=== PATIENT | male | born 1940 | race Caucasian/White ===

== ENCOUNTER 2017-07-07 09:44 | Emergency (ER) | payer BC, MEDICARE ==
[~2017-07-07] VITALS: Ht 172.7 cm; Wt 95.5 kg
[2017-07-07] MEDS ORDERED: REST15CA PO (10:01)
[2017-07-07] MEDS ORDERED: LEVO25TA5 PO (10:01)
[2017-07-07] MEDS ORDERED: ENAL10TA10 PO (10:01)
[2017-07-07] MEDS ORDERED: ASPI81TA85 PO (10:01)
[2017-07-07] MEDS ORDERED: TERA5CA PO (10:01)
[2017-07-07] MEDS ORDERED: LORA2CON5 PO (10:01)
[2017-07-07] MEDS ORDERED: MULT1TAB28 PO (10:01)
[2017-07-07 11:10] LABS: BASO % 0.7 % (0.0-1.0); EOS % 0.3 % (0.0-3.0); IMMATURE GRANULOCYTE % 0.2 % (0-0); LYMPH # 0.6 10^3/uL (1.5-4.5); LYMPH % 10.4 % (24.0-44.0); MEAN CORPUSCULAR HEMOGLOBIN 28.6 pg (27.0-33.0); MEAN CORPUSCULAR HGB CONC 32.7 g/dl (32.0-36.5); MEAN CORPUSCULAR VOLUME 87.4 fl (80.0-96.0); MONO # 0.5 10^3/uL (0.0-0.8); MONO % 8.2 % (0.0-5.0); NEUTROPHILS # 4.7 10^3/uL (1.8-7.7); NEUTROPHILS % 80.2 % (36.0-66.0); PLATELET COUNT, AUTOMATED 158 10^3/uL (150-450); RED CELL DISTRIBUTION WIDTH 14.4 % (11.5-14.5); WHITE BLOOD COUNT 5.9 10^3/uL (4.0-10.0)
[2017-07-07 11:26] LABS: ANION GAP 6 MEQ/L (8-16); BLOOD UREA NITROGEN 18 MG/DL (7-18); CALCIUM LEVEL 8.6 MG/DL (8.8-10.2); CARBON DIOXIDE LEVEL 34 MEQ/L (21-32); CHLORIDE LEVEL 107 MEQ/L (98-107); CREATININE FOR GFR 0.76 MG/DL (0.70-1.30); GLOMERULAR FILTRATION RATE > 60.0 (>42); GLUCOSE, FASTING 99 MG/DL (83-110); POTASSIUM SERUM 3.1 MEQ/L (3.5-5.1); SODIUM LEVEL 147 MEQ/L (136-145)
[2017-07-07 11:34] LABS: ERYTHROCYTE SEDIMENTATION RATE 115 mm/hr (0-20)
[2017-07-07] MEDS ORDERED: POTASSIUM CHLORIDE 10 MEQ SR TABLET PO ONE (13:30)
[2017-07-07] MEDS ORDERED: DOXY100C37 PO (13:35)
[2017-07-07] MEDS ORDERED: K-TA10TA2 PO (13:37)
[2017-07-07] MEDS ORDERED: NEOSPORIN OINT 0.9 GM PKT (FLOOR STOCK) As Ordered ONE (13:42)
[2017-07-07 13:56] VITALS: BP 162/84
--- NOTE | 2017-07-07 14:32 | REP ---
Right TIB-fib series: Four views. History: Right leg cellulitis. Right trejo wound, question osteomyelitis. Findings: Four views of the right TIB-fib show vascular calcification. 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 There is no plain radiographic evidence of osteomyelitis. No soft tissue gas is seen. Impression: No acute bony abnormality. Signed by Yaya Valle MD 07/07/2017 01:42 P
--- NOTE | 2017-07-07 14:32 | REP ---
Duplex extremity venous ultrasound: Right lower extremity. History: Right leg cellulitis. Question DVT. Findings: The deep veins are anechoic and fully compressible from the groin to the popliteal fossa in the right lower extremity. Color flow imaging is homogeneous. Spectral Doppler interrogation demonstrates intact respiratory variation in flow and normal manual augmentation of flow. There is no evidence of deep vein thrombosis. Impression: Negative right lower extremity duplex venous ultrasound. No evidence of deep vein thrombosis. Signed by Yaya Valle MD 07/07/2017 11:31 A
--- NOTE | 2017-07-07 14:32 | REP ---
Pelvis right hip: Three views. History: Right hip pain. Multiple falls. Findings: AP view of the pelvis demonstrates an intact bony pelvic ring. No hip, pelvic or sacral fracture is seen. There are arthritic changes in the hips bilaterally. Femoral heads are smooth and rounded. Periarticular soft tissues are unremarkable. Impression: Some degenerative changes. No fracture seen. Signed by Yaya Valle MD 07/07/2017 01:41 P
[2017-07-08] MEDS ORDERED: LASI20TA PO (06:11)
--- NOTE | 2017-07-08 08:59 | ED PDOC ---
Post-Departure Follow-Up I CALLED MRS. DAY AND ADVISED HER I HAD OMITTED THE PRESCRIPTION WE HAD DISCUSSED FOR FUROSEMIDE YESTERDAY. SHE REPORTED SHE ALREADY HAS HER OWN RX AT HOME AND HAD GIVEN HER 40MG YESTERDAY WHICH IMPROVED HIS LEG SWELLING. I TOLD HER I HAVE PLACED A RX TO BE PICKED UP AT THE PHARMACY AND HE IS TO TAKE 20MG DAILY FOR THE NEXT 4 DAYS. SHE EXPRESSED AWARENESS. Trinity Chun PA-C Jul 08, 2017 08:59
[2017-07-14] MEDS ORDERED: POTA20TA PO (13:04)
[2017-07-14] MEDS ORDERED: TORS20TA2 PO (13:04)
[2017-07-14] MEDS ORDERED: LORA0.5T11 PO (13:05)
[2017-07-14] MEDS ORDERED: DOXY100T PO (13:05)
== END 2017-07-07 13:57 | disposition home or self-care (01) ==
LOC: M ED 09:44
DX: L03.115 Cellulitis of right lower limb (principal); L97.909 Non-pressure chronic ulcer of unspecified part of unspecified lower leg with unspecified severity; R60.9 Edema, unspecified; E87.6 Hypokalemia; R03.0 Elevated blood-pressure reading, without diagnosis of hypertension; Z87.442 Personal history of urinary calculi; G30.9 Alzheimer's disease, unspecified; N40.0 Benign prostatic hyperplasia without lower urinary tract symptoms; Z87.891 Personal history of nicotine dependence; Z79.82 Long term (current) use of aspirin; Z79.899 Other long term (current) drug therapy

== ENCOUNTER 2017-07-14 09:15 | Inpatient (IN) | payer MEDICARE ==
[2017-07-14] MEDS: ASPIRIN 81 MG ENTERIC TAB PO (09:00)
[2017-07-14] MEDS: ENOXAPARIN 40 MG/0.4 ML SYRINGE (J1650) SC (09:00)
[2017-07-14 10:07] LABS: BASO % 0.5 % (0.0-1.0); EOS % 0.6 % (0.0-3.0); IMMATURE GRANULOCYTE % 0.3 % (0-0); LYMPH # 0.7 10^3/uL (1.5-4.5); LYMPH % 10.6 % (24.0-44.0); MEAN CORPUSCULAR HEMOGLOBIN 28.5 pg (27.0-33.0); MEAN CORPUSCULAR HGB CONC 32.4 g/dl (32.0-36.5); MONO # 0.5 10^3/uL (0.0-0.8); MONO % 8.7 % (0.0-5.0); NEUTROPHILS # 4.9 10^3/uL (1.8-7.7); NEUTROPHILS % 79.3 % (36.0-66.0); PLATELET COUNT, AUTOMATED 188 10^3/uL (150-450); RED CELL DISTRIBUTION WIDTH 14.7 % (11.5-14.5); WHITE BLOOD COUNT 6.2 10^3/uL (4.0-10.0)
[2017-07-14 10:33] LABS: ALBUMIN/GLOBULIN RATIO 1.25 (1.00-1.93); ALKALINE PHOSPHATASE 83 U/L (45-117); ALT/SGPT 30 U/L (12-78); ANION GAP 7 MEQ/L (8-16); AST/SGOT 21 U/L (7-37); BILIRUBIN,DIRECT 0.3 MG/DL (0.0-0.2); BILIRUBIN,TOTAL 1.4 MG/DL (0.2-1.0); BLOOD UREA NITROGEN 42 MG/DL (7-18); CALCIUM LEVEL 9.3 MG/DL (8.8-10.2); CARBON DIOXIDE LEVEL 37 MEQ/L (21-32); CHLORIDE LEVEL 99 MEQ/L (98-107); CREATININE FOR GFR 1.54 MG/DL (0.70-1.30); GLOMERULAR FILTRATION RATE 47.2 (>42); GLUCOSE, FASTING 97 MG/DL (83-110); SODIUM LEVEL 143 MEQ/L (136-145); TOTAL PROTEIN 7.2 GM/DL (6.4-8.2)
[2017-07-14 10:42] LABS: METHADONE URINE NEGATIVE (NEGATIVE)
[2017-07-14 10:52] LABS: POTASSIUM SERUM 2.6 MEQ/L (3.5-5.1)
[2017-07-14] MEDS: KCL 10MEQ IN 100ML SWI (KRUN) 10 MEQ in APPROPRIATE DILUENT 1 EA IV (11:09)
[2017-07-14] MEDS: POTASSIUM CHLORIDE 10 MEQ SR TABLET PO (11:37)
[2017-07-14] MEDS: HALOPERIDOL 5 MG/ML VIAL (J1630) IV (16:00)
[2017-07-14 16:59] LABS: ANION GAP 8 MEQ/L (8-16); BLOOD UREA NITROGEN 46 MG/DL (7-18); CALCIUM LEVEL 9.5 MG/DL (8.8-10.2); CARBON DIOXIDE LEVEL 34 MEQ/L (21-32); CHLORIDE LEVEL 103 MEQ/L (98-107); CREATININE FOR GFR 1.58 MG/DL (0.70-1.30); GLOMERULAR FILTRATION RATE 45.9 (>42); GLUCOSE, FASTING 123 MG/DL (83-110); SODIUM LEVEL 145 MEQ/L (136-145)
[2017-07-14] MEDS: LORazepam 2 MG/ML VIAL (J2060) IV (17:14)
[2017-07-14] MEDS: HALOPERIDOL 1 MG TAB PO (18:48)
[2017-07-14] MEDS: LORazepam 1 MG TAB PO (18:48)
[2017-07-14] MEDS: SODIUM CHLORIDE 0.9% 1000 ML IV (19:50)
[2017-07-14] MEDS: SENOKOT S TAB PO (19:50)
[2017-07-14] MEDS: ACETAMINOPHEN 500 MG TAB PO (19:50)
[2017-07-15] MEDS: LEVOTHYROXINE 25MCG TABLET (0.025MG) PO (05:50)
[2017-07-15 06:01] LABS: BASO % 0.6 % (0.0-1.0); EOS # 0.1 10^3/uL (0.0-0.50); EOS % 1.1 % (0.0-3.0); IMMATURE GRANULOCYTE % 0.5 % (0-0); LYMPH # 0.8 10^3/uL (1.5-4.5); LYMPH % 12.7 % (24.0-44.0); MEAN CORPUSCULAR HEMOGLOBIN 28.4 pg (27.0-33.0); MEAN CORPUSCULAR HGB CONC 32.3 g/dl (32.0-36.5); MONO # 0.8 10^3/uL (0.0-0.8); MONO % 12.4 % (0.0-5.0); NEUTROPHILS # 4.5 10^3/uL (1.8-7.7); NEUTROPHILS % 72.7 % (36.0-66.0); PLATELET COUNT, AUTOMATED 164 10^3/uL (150-450); RED CELL DISTRIBUTION WIDTH 14.3 % (11.5-14.5); WHITE BLOOD COUNT 6.2 10^3/uL (4.0-10.0)
[2017-07-15 06:25] LABS: ANION GAP 9 MEQ/L (8-16); BLOOD UREA NITROGEN 42 MG/DL (7-18); CARBON DIOXIDE LEVEL 30 MEQ/L (21-32); CHLORIDE LEVEL 105 MEQ/L (98-107); CREATININE FOR GFR 1.15 MG/DL (0.70-1.30); GLOMERULAR FILTRATION RATE > 60.0 (>42); GLUCOSE, FASTING 109 MG/DL (83-110); POTASSIUM SERUM 2.9 MEQ/L (3.5-5.1); SODIUM LEVEL 144 MEQ/L (136-145)
[2017-07-15 07:12] LABS: MAGNESIUM LEVEL 2.1 MG/DL (1.8-2.4)
[2017-07-15] MEDS: POTASSIUM CHLORIDE 10 MEQ SR TABLET PO ×2 (07:28→08:12)
[2017-07-15] MEDS: ASPIRIN 81 MG ENTERIC TAB PO (08:11)
[2017-07-15] MEDS: SENOKOT S TAB PO ×2 (08:12→20:05)
[2017-07-15] MEDS: ENOXAPARIN 40 MG/0.4 ML SYRINGE (J1650) SC (08:12)
[2017-07-15] MEDS: TERAZOSIN 5 MG CAP PO (10:18)
[2017-07-15] MEDS: LORazepam 1 MG TAB PO ×2 (10:18→20:05)
[2017-07-15] MEDS: HALOPERIDOL 1 MG TAB PO (16:06)
[2017-07-15 21:52] LABS: ANION GAP 4 MEQ/L (8-16); BLOOD UREA NITROGEN 40 MG/DL (7-18); CALCIUM LEVEL 9.5 MG/DL (8.8-10.2); CARBON DIOXIDE LEVEL 33 MEQ/L (21-32); CHLORIDE LEVEL 108 MEQ/L (98-107); CREATININE FOR GFR 1.07 MG/DL (0.70-1.30); GLOMERULAR FILTRATION RATE > 60.0 (>42); GLUCOSE, FASTING 101 MG/DL (83-110); POTASSIUM SERUM 4.1 MEQ/L (3.5-5.1); SODIUM LEVEL 145 MEQ/L (136-145)
[2017-07-16] MEDS: LEVOTHYROXINE 25MCG TABLET (0.025MG) PO (05:51)
[2017-07-16 06:59] LABS: BASO % 0.5 % (0.0-1.0); EOS # 0.1 10^3/uL (0.0-0.50); EOS % 1.1 % (0.0-3.0); IMMATURE GRANULOCYTE % 0.2 % (0-0); LYMPH # 0.8 10^3/uL (1.5-4.5); LYMPH % 13.4 % (24.0-44.0); MEAN CORPUSCULAR HEMOGLOBIN 28.3 pg (27.0-33.0); MEAN CORPUSCULAR HGB CONC 32.1 g/dl (32.0-36.5); MEAN CORPUSCULAR VOLUME 88.3 fl (80.0-96.0); MONO # 0.7 10^3/uL (0.0-0.8); MONO % 12.2 % (0.0-5.0); NEUTROPHILS # 4.1 10^3/uL (1.8-7.7); NEUTROPHILS % 72.6 % (36.0-66.0); PLATELET COUNT, AUTOMATED 153 10^3/uL (150-450); RED CELL DISTRIBUTION WIDTH 14.3 % (11.5-14.5); WHITE BLOOD COUNT 5.7 10^3/uL (4.0-10.0)
[2017-07-16 07:14] LABS: ANION GAP 6 MEQ/L (8-16); BLOOD UREA NITROGEN 31 MG/DL (7-18); CALCIUM LEVEL 9.2 MG/DL (8.8-10.2); CARBON DIOXIDE LEVEL 30 MEQ/L (21-32); CHLORIDE LEVEL 110 MEQ/L (98-107); CREATININE FOR GFR 0.81 MG/DL (0.70-1.30); GLOMERULAR FILTRATION RATE > 60.0 (>42); GLUCOSE, FASTING 101 MG/DL (83-110); POTASSIUM SERUM 3.4 MEQ/L (3.5-5.1); SODIUM LEVEL 146 MEQ/L (136-145)
[2017-07-16] MEDS: LORazepam 1 MG TAB PO ×3 (07:50→21:03)
[2017-07-16] MEDS: ENOXAPARIN 40 MG/0.4 ML SYRINGE (J1650) SC (08:01)
[2017-07-16] MEDS: TERAZOSIN 5 MG CAP PO (08:01)
[2017-07-16] MEDS: ASPIRIN 81 MG ENTERIC TAB PO (08:01)
[2017-07-16] MEDS: SENOKOT S TAB PO ×2 (08:01→21:03)
[2017-07-16] MEDS: LORazepam 2 MG/ML VIAL (J2060) IV (09:58)
[2017-07-16 10:27] LABS: VITAMIN B12 LEVEL 321 PG/ML (247-911)
[2017-07-16] MEDS: HALOPERIDOL 1 MG TAB PO (15:34)
[2017-07-16] MEDS ORDERED: HALOPERIDOL 5 MG/ML VIAL (J1630) As Ordered (15:51)
[2017-07-16] MEDS: HALOPERIDOL 5 MG/ML VIAL (J1630) IM (15:56)
[2017-07-16] MEDS ORDERED: HALOPERIDOL 5 MG/ML VIAL (J1630) IM (16:00)
[2017-07-16] MEDS: QUEtiapine FUMARATE 25 MG TAB PO (21:03)
[2017-07-17] MEDS: LORazepam 1 MG TAB PO ×2 (03:57→11:13)
[2017-07-17] MEDS: LEVOTHYROXINE 25MCG TABLET (0.025MG) PO (05:53)
[2017-07-17] MEDS: ASPIRIN 81 MG ENTERIC TAB PO (09:37)
[2017-07-17] MEDS: ENOXAPARIN 40 MG/0.4 ML SYRINGE (J1650) SC (09:37)
[2017-07-17] MEDS: TERAZOSIN 5 MG CAP PO (09:37)
[2017-07-17] MEDS: QUEtiapine FUMARATE 25 MG TAB PO ×2 (09:37→20:39)
[2017-07-17] MEDS: SENOKOT S TAB PO ×2 (09:37→20:39)
[2017-07-18] MEDS: LORazepam 1 MG TAB PO ×2 (02:47→08:52)
[2017-07-18] MEDS: LEVOTHYROXINE 25MCG TABLET (0.025MG) PO (05:40)
[2017-07-18] MEDS: TERAZOSIN 5 MG CAP PO (08:52)
[2017-07-18] MEDS: QUEtiapine FUMARATE 25 MG TAB PO ×2 (08:52→21:15)
[2017-07-18] MEDS: SENOKOT S TAB PO ×2 (08:52→21:15)
[2017-07-18] MEDS: ENOXAPARIN 40 MG/0.4 ML SYRINGE (J1650) SC (08:52)
[2017-07-18] MEDS: ASPIRIN 81 MG ENTERIC TAB PO (08:52)
[2017-07-18] MEDS: QUEtiapine FUMARATE 12.5 MG HALF-TAB PO (21:15)
[2017-07-19] MEDS: LEVOTHYROXINE 25MCG TABLET (0.025MG) PO (05:26)
[2017-07-19] MEDS: SENOKOT S TAB PO ×2 (10:06→21:26)
[2017-07-19] MEDS: QUEtiapine FUMARATE 12.5 MG HALF-TAB PO ×2 (10:06→21:00)
[2017-07-19] MEDS: ASPIRIN 81 MG ENTERIC TAB PO (10:07)
[2017-07-19] MEDS: TERAZOSIN 5 MG CAP PO (10:07)
[2017-07-19] MEDS: QUEtiapine FUMARATE 25 MG TAB PO ×2 (10:07→21:26)
[2017-07-19] MEDS: ENOXAPARIN 40 MG/0.4 ML SYRINGE (J1650) SC (10:28)
[2017-07-19] MEDS: HALOPERIDOL 5 MG/ML VIAL (J1630) IM (15:18)
[2017-07-19] MEDS: LORazepam 1 MG TAB PO (18:09)
[2017-07-20] MEDS: LORazepam 1 MG TAB PO (04:27)
[2017-07-20] MEDS: ACETAMINOPHEN 500 MG TAB PO ×2 (04:27→22:02)
[2017-07-20] MEDS: LEVOTHYROXINE 25MCG TABLET (0.025MG) PO (04:27)
[2017-07-20] MEDS: QUEtiapine FUMARATE 25 MG TAB PO (10:58)
[2017-07-20] MEDS: TERAZOSIN 5 MG CAP PO (10:59)
[2017-07-20] MEDS: ASPIRIN 81 MG ENTERIC TAB PO (10:59)
[2017-07-20] MEDS: SENOKOT S TAB PO ×2 (10:59→22:03)
[2017-07-20] MEDS: QUEtiapine FUMARATE 12.5 MG HALF-TAB PO (11:00)
[2017-07-20] MEDS: ENOXAPARIN 40 MG/0.4 ML SYRINGE (J1650) SC (11:04)
[2017-07-20] MEDS: QUEtiapine FUMARATE 50 MG TAB PO (22:03)
[2017-07-21] MEDS: LEVOTHYROXINE 25MCG TABLET (0.025MG) PO (06:34)
[2017-07-21] MEDS: SENOKOT S TAB PO ×2 (09:00→20:17)
[2017-07-21] MEDS: ENOXAPARIN 40 MG/0.4 ML SYRINGE (J1650) SC (10:41)
[2017-07-21] MEDS: QUEtiapine FUMARATE 50 MG TAB PO ×2 (10:41→20:17)
[2017-07-21] MEDS: ASPIRIN 81 MG ENTERIC TAB PO (10:41)
[2017-07-21] MEDS: TERAZOSIN 5 MG CAP PO (10:41)
[2017-07-22] MEDS: LEVOTHYROXINE 25MCG TABLET (0.025MG) PO (05:33)
[2017-07-22] MEDS: ASPIRIN 81 MG ENTERIC TAB PO (07:54)
[2017-07-22] MEDS: QUEtiapine FUMARATE 50 MG TAB PO (07:54)
[2017-07-22] MEDS: SENOKOT S TAB PO ×2 (07:54→20:31)
[2017-07-22] MEDS: TERAZOSIN 5 MG CAP PO (07:54)
[2017-07-22] MEDS: ENOXAPARIN 40 MG/0.4 ML SYRINGE (J1650) SC (07:55)
[2017-07-22] MEDS: LORazepam 1 MG TAB PO ×2 (07:55→20:32)
[2017-07-22] MEDS: ACETAMINOPHEN 500 MG TAB PO (10:56)
[2017-07-22] MEDS: HALOPERIDOL 5 MG/ML VIAL (J1630) IM (16:04)
[2017-07-22] MEDS: diphenhydrAMINE INJ 50MG/ML VIAL (J1200) IM (16:21)
[2017-07-22] MEDS: QUEtiapine FUMARATE 25 MG TAB PO (20:31)
[2017-07-23] MEDS: LEVOTHYROXINE 25MCG TABLET (0.025MG) PO (06:10)
[2017-07-23] MEDS: ACETAMINOPHEN 500 MG TAB PO ×2 (06:52→18:59)
[2017-07-23] MEDS: QUEtiapine FUMARATE 25 MG TAB PO ×2 (09:59→20:16)
[2017-07-23] MEDS: ENOXAPARIN 40 MG/0.4 ML SYRINGE (J1650) SC (09:59)
[2017-07-23] MEDS: ASPIRIN 81 MG ENTERIC TAB PO (10:00)
[2017-07-23] MEDS: TERAZOSIN 5 MG CAP PO (10:00)
[2017-07-23] MEDS: SENOKOT S TAB PO ×2 (10:01→20:16)
[2017-07-23] MEDS: LORazepam 1 MG TAB PO (18:59)
[2017-07-24] MEDS: LEVOTHYROXINE 25MCG TABLET (0.025MG) PO (05:57)
[2017-07-24] MEDS: QUEtiapine FUMARATE 25 MG TAB PO ×2 (10:11→20:30)
[2017-07-24] MEDS: TERAZOSIN 5 MG CAP PO (10:12)
[2017-07-24] MEDS: SENOKOT S TAB PO ×2 (10:12→20:30)
[2017-07-24] MEDS: ASPIRIN 81 MG ENTERIC TAB PO (10:12)
[2017-07-24] MEDS: ENOXAPARIN 40 MG/0.4 ML SYRINGE (J1650) SC (10:13)
[2017-07-24] MEDS: ACETAMINOPHEN 500 MG TAB PO (15:22)
[2017-07-24] MEDS: LORazepam 1 MG TAB PO (18:00)
[2017-07-25] MEDS: LEVOTHYROXINE 25MCG TABLET (0.025MG) PO (05:52)
[2017-07-25] MEDS: QUEtiapine FUMARATE 25 MG TAB PO ×2 (10:01→20:26)
[2017-07-25] MEDS: SENOKOT S TAB PO ×2 (10:01→20:26)
[2017-07-25] MEDS: ASPIRIN 81 MG ENTERIC TAB PO (10:01)
[2017-07-25] MEDS: ENOXAPARIN 40 MG/0.4 ML SYRINGE (J1650) SC (10:02)
[2017-07-25] MEDS: TERAZOSIN 5 MG CAP PO (10:02)
[2017-07-25] MEDS: ACETAMINOPHEN 500 MG TAB PO (14:44)
[2017-07-26] MEDS: LEVOTHYROXINE 25MCG TABLET (0.025MG) PO (05:43)
[2017-07-26] MEDS: ASPIRIN 81 MG ENTERIC TAB PO (08:43)
[2017-07-26] MEDS: ENOXAPARIN 40 MG/0.4 ML SYRINGE (J1650) SC (08:43)
[2017-07-26] MEDS: QUEtiapine FUMARATE 25 MG TAB PO ×2 (08:43→20:11)
[2017-07-26] MEDS: TERAZOSIN 5 MG CAP PO (08:43)
[2017-07-26] MEDS: SENOKOT S TAB PO ×2 (08:43→16:58)
[2017-07-26] MEDS: LORazepam 1 MG TAB PO (14:35)
[2017-07-27] MEDS: LEVOTHYROXINE 25MCG TABLET (0.025MG) PO (05:04)
[2017-07-27] MEDS: LORazepam 1 MG TAB PO ×2 (05:04→17:20)
[2017-07-27] MEDS: SENOKOT S TAB PO ×2 (07:54→20:16)
[2017-07-27] MEDS: QUEtiapine FUMARATE 25 MG TAB PO ×2 (08:46→20:16)
[2017-07-27] MEDS: ASPIRIN 81 MG ENTERIC TAB PO (08:47)
[2017-07-27] MEDS: TERAZOSIN 5 MG CAP PO (08:47)
[2017-07-27] MEDS: ENOXAPARIN 40 MG/0.4 ML SYRINGE (J1650) SC (08:48)
[2017-07-27] MEDS: ACETAMINOPHEN 500 MG TAB PO (20:14)
[2017-07-28] MEDS: HALOPERIDOL 5 MG/ML VIAL (J1630) IM (01:40)
[2017-07-28] MEDS: LEVOTHYROXINE 25MCG TABLET (0.025MG) PO (06:20)
[2017-07-28] MEDS: SENOKOT S TAB PO ×2 (09:56→20:27)
[2017-07-28] MEDS: QUEtiapine FUMARATE 25 MG TAB PO ×2 (09:56→20:27)
[2017-07-28] MEDS: TERAZOSIN 5 MG CAP PO (09:57)
[2017-07-28] MEDS: ASPIRIN 81 MG ENTERIC TAB PO (09:57)
[2017-07-28] MEDS: ENOXAPARIN 40 MG/0.4 ML SYRINGE (J1650) SC (09:57)
[2017-07-29] MEDS: LEVOTHYROXINE 25MCG TABLET (0.025MG) PO (05:45)
[2017-07-29] MEDS: ASPIRIN 81 MG ENTERIC TAB PO (10:39)
[2017-07-29] MEDS: QUEtiapine FUMARATE 25 MG TAB PO ×2 (10:39→20:55)
[2017-07-29] MEDS: SENOKOT S TAB PO ×2 (10:39→20:55)
[2017-07-29] MEDS: ENOXAPARIN 40 MG/0.4 ML SYRINGE (J1650) SC (10:40)
[2017-07-29] MEDS: TERAZOSIN 5 MG CAP PO (10:40)
[2017-07-29] MEDS: LORazepam 1 MG TAB PO (22:31)
[2017-07-30] MEDS: LEVOTHYROXINE 25MCG TABLET (0.025MG) PO (05:32)
[2017-07-30] MEDS: QUEtiapine FUMARATE 25 MG TAB PO ×2 (10:08→20:29)
[2017-07-30] MEDS: ASPIRIN 81 MG ENTERIC TAB PO (10:08)
[2017-07-30] MEDS: SENOKOT S TAB PO ×2 (10:08→20:29)
[2017-07-30] MEDS: TERAZOSIN 5 MG CAP PO (10:11)
[2017-07-30] MEDS: ENOXAPARIN 40 MG/0.4 ML SYRINGE (J1650) SC (10:12)
[2017-07-30] MEDS: LORazepam 1 MG TAB PO (19:27)
[2017-07-31] MEDS: LEVOTHYROXINE 25MCG TABLET (0.025MG) PO (05:44)
[2017-07-31] MEDS: TERAZOSIN 5 MG CAP PO (08:00)
[2017-07-31] MEDS: SENOKOT S TAB PO ×2 (08:00→20:21)
[2017-07-31] MEDS: ASPIRIN 81 MG ENTERIC TAB PO (08:00)
[2017-07-31] MEDS: QUEtiapine FUMARATE 25 MG TAB PO ×2 (08:00→20:22)
[2017-07-31] MEDS: ENOXAPARIN 40 MG/0.4 ML SYRINGE (J1650) SC (08:01)
[2017-08-01] MEDS: LEVOTHYROXINE 25MCG TABLET (0.025MG) PO (06:00)
[2017-08-01] MEDS: SENOKOT S TAB PO ×2 (09:02→20:02)
[2017-08-01] MEDS: TERAZOSIN 5 MG CAP PO (09:02)
[2017-08-01] MEDS: ASPIRIN 81 MG ENTERIC TAB PO (09:02)
[2017-08-01] MEDS: QUEtiapine FUMARATE 25 MG TAB PO ×2 (09:02→20:03)
[2017-08-01] MEDS: ENOXAPARIN 40 MG/0.4 ML SYRINGE (J1650) SC (09:03)
[2017-08-01] MEDS: ACETAMINOPHEN 500 MG TAB PO (20:03)
[2017-08-02] MEDS: ACETAMINOPHEN 500 MG TAB PO (04:41)
[2017-08-02] MEDS: LEVOTHYROXINE 25MCG TABLET (0.025MG) PO (05:46)
[2017-08-02] MEDS: ASPIRIN 81 MG ENTERIC TAB PO (09:27)
[2017-08-02] MEDS: QUEtiapine FUMARATE 25 MG TAB PO ×2 (09:27→21:04)
[2017-08-02] MEDS: TERAZOSIN 5 MG CAP PO (09:30)
[2017-08-02] MEDS: ENOXAPARIN 40 MG/0.4 ML SYRINGE (J1650) SC (09:30)
[2017-08-02] MEDS: SENOKOT S TAB PO ×2 (09:30→21:04)
[2017-08-03] MEDS: ACETAMINOPHEN 500 MG TAB PO (03:46)
[2017-08-03] MEDS: LEVOTHYROXINE 25MCG TABLET (0.025MG) PO (06:01)
[2017-08-03] MEDS: ASPIRIN 81 MG ENTERIC TAB PO (09:58)
[2017-08-03] MEDS: ENOXAPARIN 40 MG/0.4 ML SYRINGE (J1650) SC (09:58)
[2017-08-03] MEDS: QUEtiapine FUMARATE 25 MG TAB PO ×2 (09:58→20:20)
[2017-08-03] MEDS: TERAZOSIN 5 MG CAP PO (09:58)
[2017-08-03] MEDS: SENOKOT S TAB PO ×2 (09:58→20:21)
[2017-08-04] MEDS: LEVOTHYROXINE 25MCG TABLET (0.025MG) PO (05:59)
[2017-08-04] MEDS: ASPIRIN 81 MG ENTERIC TAB PO (09:27)
[2017-08-04] MEDS: QUEtiapine FUMARATE 25 MG TAB PO ×2 (09:27→21:45)
[2017-08-04] MEDS: TERAZOSIN 5 MG CAP PO (09:28)
[2017-08-04] MEDS: SENOKOT S TAB PO ×2 (09:28→21:44)
[2017-08-05] MEDS: LEVOTHYROXINE 25MCG TABLET (0.025MG) PO (06:36)
[2017-08-05] MEDS: TERAZOSIN 5 MG CAP PO (08:35)
[2017-08-05] MEDS: ASPIRIN 81 MG ENTERIC TAB PO (08:36)
[2017-08-05] MEDS: SENOKOT S TAB PO ×2 (08:36→21:07)
[2017-08-05] MEDS: QUEtiapine FUMARATE 25 MG TAB PO ×2 (08:37→21:08)
[2017-08-05] MEDS: LORazepam 1 MG TAB PO (21:10)
[2017-08-06] MEDS: LEVOTHYROXINE 25MCG TABLET (0.025MG) PO (06:04)
[2017-08-06] MEDS: ASPIRIN 81 MG ENTERIC TAB PO (09:44)
[2017-08-06] MEDS: SENOKOT S TAB PO ×2 (09:45→20:08)
[2017-08-06] MEDS: QUEtiapine FUMARATE 25 MG TAB PO ×2 (09:45→20:07)
[2017-08-06] MEDS: TERAZOSIN 5 MG CAP PO (10:35)
[2017-08-06] MEDS: LORazepam 1 MG TAB PO (20:07)
[2017-08-07] MEDS: LEVOTHYROXINE 25MCG TABLET (0.025MG) PO (05:14)
[2017-08-07] MEDS: QUEtiapine FUMARATE 25 MG TAB PO ×2 (11:29→20:25)
[2017-08-07] MEDS: ASPIRIN 81 MG ENTERIC TAB PO (11:29)
[2017-08-07] MEDS: SENOKOT S TAB PO ×2 (11:29→20:25)
[2017-08-07] MEDS: TERAZOSIN 5 MG CAP PO (11:30)
[2017-08-07] MEDS: LORazepam 1 MG TAB PO (20:25)
[2017-08-08] MEDS: LEVOTHYROXINE 25MCG TABLET (0.025MG) PO (05:17)
[2017-08-08] MEDS: ASPIRIN 81 MG ENTERIC TAB PO (10:02)
[2017-08-08] MEDS: TERAZOSIN 5 MG CAP PO (10:02)
[2017-08-08] MEDS: QUEtiapine FUMARATE 25 MG TAB PO ×2 (10:02→20:18)
[2017-08-08] MEDS: SENOKOT S TAB PO ×2 (10:02→20:18)
[2017-08-08] MEDS: LORazepam 1 MG TAB PO (20:18)
[2017-08-09] MEDS: LEVOTHYROXINE 25MCG TABLET (0.025MG) PO ×2 (05:48→05:52)
[2017-08-09] MEDS: QUEtiapine FUMARATE 25 MG TAB PO ×2 (10:08→21:42)
[2017-08-09] MEDS: ASPIRIN 81 MG ENTERIC TAB PO (10:09)
[2017-08-09] MEDS: SENOKOT S TAB PO ×2 (10:09→21:42)
[2017-08-09] MEDS: TERAZOSIN 5 MG CAP PO (10:17)
[2017-08-09] MEDS: ACETAMINOPHEN 500 MG TAB PO (10:20)
[2017-08-10] MEDS: LEVOTHYROXINE 25MCG TABLET (0.025MG) PO (05:37)
[2017-08-10] MEDS: QUEtiapine FUMARATE 25 MG TAB PO ×2 (09:20→21:41)
[2017-08-10] MEDS: TERAZOSIN 5 MG CAP PO (09:20)
[2017-08-10] MEDS: SENOKOT S TAB PO ×2 (09:20→21:41)
[2017-08-10] MEDS: ASPIRIN 81 MG ENTERIC TAB PO (09:20)
[2017-08-11] MEDS: LEVOTHYROXINE 25MCG TABLET (0.025MG) PO (08:31)
[2017-08-11] MEDS: QUEtiapine FUMARATE 25 MG TAB PO ×2 (08:31→21:52)
[2017-08-11] MEDS: ASPIRIN 81 MG ENTERIC TAB PO (08:34)
[2017-08-11] MEDS: SENOKOT S TAB PO ×2 (08:34→21:52)
[2017-08-11] MEDS: TERAZOSIN 5 MG CAP PO (08:34)
[2017-08-11] MEDS: ACETAMINOPHEN 500 MG TAB PO (11:56)
[2017-08-12] MEDS: LEVOTHYROXINE 25MCG TABLET (0.025MG) PO (06:01)
[2017-08-12] MEDS: QUEtiapine FUMARATE 25 MG TAB PO ×2 (10:09→21:16)
[2017-08-12] MEDS: SENOKOT S TAB PO ×2 (10:09→21:16)
[2017-08-12] MEDS: TERAZOSIN 5 MG CAP PO (10:09)
[2017-08-12] MEDS: ASPIRIN 81 MG ENTERIC TAB PO (10:09)
[2017-08-12] MEDS: LORazepam 1 MG TAB PO (21:16)
[2017-08-13] MEDS: LEVOTHYROXINE 25MCG TABLET (0.025MG) PO (06:32)
[2017-08-13] MEDS: ASPIRIN 81 MG ENTERIC TAB PO (10:41)
[2017-08-13] MEDS: QUEtiapine FUMARATE 25 MG TAB PO ×2 (10:41→20:30)
[2017-08-13] MEDS: SENOKOT S TAB PO ×2 (10:41→20:30)
[2017-08-13] MEDS: TERAZOSIN 5 MG CAP PO (10:42)
[2017-08-14] MEDS: LEVOTHYROXINE 25MCG TABLET (0.025MG) PO (06:35)
[2017-08-14] MEDS: ASPIRIN 81 MG ENTERIC TAB PO (10:36)
[2017-08-14] MEDS: QUEtiapine FUMARATE 25 MG TAB PO ×2 (10:36→20:24)
[2017-08-14] MEDS: SENOKOT S TAB PO ×2 (10:36→20:24)
[2017-08-14] MEDS: TERAZOSIN 5 MG CAP PO (10:36)
[2017-08-15] MEDS: LEVOTHYROXINE 25MCG TABLET (0.025MG) PO (06:28)
[2017-08-15] MEDS: ASPIRIN 81 MG ENTERIC TAB PO (10:23)
[2017-08-15] MEDS: TERAZOSIN 5 MG CAP PO (10:24)
[2017-08-15] MEDS: QUEtiapine FUMARATE 25 MG TAB PO ×2 (10:24→20:15)
[2017-08-15] MEDS: SENOKOT S TAB PO ×2 (10:24→20:15)
[2017-08-15] MEDS: LORazepam 1 MG TAB PO (20:15)
[2017-08-16] MEDS: LEVOTHYROXINE 25MCG TABLET (0.025MG) PO (06:12)
[2017-08-16] MEDS: TERAZOSIN 5 MG CAP PO (10:44)
[2017-08-16] MEDS: ASPIRIN 81 MG ENTERIC TAB PO (10:44)
[2017-08-16] MEDS: QUEtiapine FUMARATE 25 MG TAB PO ×2 (10:44→20:49)
[2017-08-16] MEDS: SENOKOT S TAB PO ×2 (10:44→20:49)
[2017-08-16] MEDS: amLODIPine 5 MG TAB PO ×2 (15:44→20:50)
[2017-08-17] MEDS: LEVOTHYROXINE 25MCG TABLET (0.025MG) PO (05:32)
[2017-08-17] MEDS: amLODIPine 5 MG TAB PO ×2 (10:15→21:45)
[2017-08-17] MEDS: TERAZOSIN 5 MG CAP PO (10:15)
[2017-08-17] MEDS: SENOKOT S TAB PO ×2 (10:15→21:45)
[2017-08-17] MEDS: ASPIRIN 81 MG ENTERIC TAB PO (10:16)
[2017-08-17] MEDS: QUEtiapine FUMARATE 25 MG TAB PO ×2 (10:17→21:45)
[2017-08-18] MEDS: LEVOTHYROXINE 25MCG TABLET (0.025MG) PO (07:55)
[2017-08-18] MEDS: QUEtiapine FUMARATE 25 MG TAB PO ×2 (10:23→21:40)
[2017-08-18] MEDS: ASPIRIN 81 MG ENTERIC TAB PO (10:23)
[2017-08-18] MEDS: TERAZOSIN 5 MG CAP PO (10:23)
[2017-08-18] MEDS: SENOKOT S TAB PO ×2 (10:24→21:40)
[2017-08-18] MEDS: amLODIPine 5 MG TAB PO ×2 (10:24→21:40)
[2017-08-19] MEDS: LEVOTHYROXINE 25MCG TABLET (0.025MG) PO (05:57)
[2017-08-19] MEDS: SENOKOT S TAB PO ×2 (10:11→21:38)
[2017-08-19] MEDS: QUEtiapine FUMARATE 25 MG TAB PO ×2 (10:11→21:38)
[2017-08-19] MEDS: ASPIRIN 81 MG ENTERIC TAB PO (10:11)
[2017-08-19] MEDS: TERAZOSIN 5 MG CAP PO (10:14)
[2017-08-19] MEDS: amLODIPine 5 MG TAB PO ×2 (10:15→21:46)
[2017-08-20] MEDS: LEVOTHYROXINE 25MCG TABLET (0.025MG) PO (06:38)
[2017-08-20] MEDS: QUEtiapine FUMARATE 25 MG TAB PO ×2 (12:49→20:51)
[2017-08-20] MEDS: amLODIPine 5 MG TAB PO ×2 (12:49→20:54)
[2017-08-20] MEDS: SENOKOT S TAB PO ×2 (12:49→20:51)
[2017-08-20] MEDS: ASPIRIN 81 MG ENTERIC TAB PO (12:49)
[2017-08-20] MEDS: TERAZOSIN 5 MG CAP PO (12:49)
[2017-08-21] MEDS: LEVOTHYROXINE 25MCG TABLET (0.025MG) PO (05:04)
[2017-08-21] MEDS: LORazepam 1 MG TAB PO (05:04)
[2017-08-21] MEDS: TERAZOSIN 5 MG CAP PO (09:00)
[2017-08-21] MEDS: ASPIRIN 81 MG ENTERIC TAB PO (09:00)
[2017-08-21] MEDS: SENOKOT S TAB PO ×2 (09:00→20:45)
[2017-08-21] MEDS: amLODIPine 5 MG TAB PO ×2 (09:00→20:50)
[2017-08-21] MEDS: QUEtiapine FUMARATE 25 MG TAB PO ×2 (09:00→20:45)
[2017-08-22] MEDS: LEVOTHYROXINE 25MCG TABLET (0.025MG) PO (06:04)
[2017-08-22] MEDS: QUEtiapine FUMARATE 25 MG TAB PO ×2 (10:32→20:58)
[2017-08-22] MEDS: amLODIPine 5 MG TAB PO ×2 (10:32→20:57)
[2017-08-22] MEDS: SENOKOT S TAB PO ×2 (10:33→20:57)
[2017-08-22] MEDS: TERAZOSIN 5 MG CAP PO (10:33)
[2017-08-22] MEDS: ASPIRIN 81 MG ENTERIC TAB PO (10:33)
[2017-08-22] MEDS ORDERED: LORazepam 2 MG/ML VIAL (J2060) IV (13:30)
[2017-08-22] MEDS ORDERED: LORazepam 0.5 MG TAB PO (16:30)
[2017-08-22] MEDS: CIPROFLOXACIN 0.3% OPHTH SOLN 2.5ML OU (20:58)
[2017-08-23] MEDS: CIPROFLOXACIN 0.3% OPHTH SOLN 2.5ML OU ×4 (00:48→18:00)
[2017-08-23] MEDS: LEVOTHYROXINE 25MCG TABLET (0.025MG) PO (05:40)
[2017-08-23] MEDS: ASPIRIN 81 MG ENTERIC TAB PO (11:31)
[2017-08-23] MEDS: amLODIPine 5 MG TAB PO ×2 (11:32→20:46)
[2017-08-23] MEDS: TERAZOSIN 5 MG CAP PO (11:32)
[2017-08-23] MEDS: QUEtiapine FUMARATE 25 MG TAB PO ×2 (11:33→20:46)
[2017-08-23] MEDS: SENOKOT S TAB PO ×2 (11:33→20:46)
[2017-08-24] MEDS: CIPROFLOXACIN 0.3% OPHTH SOLN 2.5ML OU ×4 (00:47→18:12)
[2017-08-24] MEDS: LEVOTHYROXINE 25MCG TABLET (0.025MG) PO (06:05)
[2017-08-24] MEDS: ASPIRIN 81 MG ENTERIC TAB PO (10:22)
[2017-08-24] MEDS: amLODIPine 5 MG TAB PO ×2 (10:22→21:49)
[2017-08-24] MEDS: TERAZOSIN 5 MG CAP PO (10:22)
[2017-08-24] MEDS: SENOKOT S TAB PO ×2 (10:23→21:48)
[2017-08-24] MEDS: QUEtiapine FUMARATE 25 MG TAB PO ×2 (10:23→21:48)
[2017-08-25] MEDS: CIPROFLOXACIN 0.3% OPHTH SOLN 2.5ML OU ×4 (00:29→18:23)
[2017-08-25] MEDS: LEVOTHYROXINE 25MCG TABLET (0.025MG) PO (06:03)
[2017-08-25] MEDS: SENOKOT S TAB PO ×2 (08:28→20:57)
[2017-08-25] MEDS: TERAZOSIN 5 MG CAP PO (08:31)
[2017-08-25] MEDS: ASPIRIN 81 MG ENTERIC TAB PO (08:32)
[2017-08-25] MEDS: QUEtiapine FUMARATE 25 MG TAB PO ×2 (08:32→20:57)
[2017-08-25] MEDS: amLODIPine 5 MG TAB PO ×2 (08:32→20:59)
[2017-08-26] MEDS: CIPROFLOXACIN 0.3% OPHTH SOLN 2.5ML OU ×5 (01:30→18:00)
[2017-08-26] MEDS: LEVOTHYROXINE 25MCG TABLET (0.025MG) PO (06:13)
[2017-08-26] MEDS: ASPIRIN 81 MG ENTERIC TAB PO (09:58)
[2017-08-26] MEDS: QUEtiapine FUMARATE 25 MG TAB PO ×2 (09:58→20:43)
[2017-08-26] MEDS: SENOKOT S TAB PO ×2 (09:58→20:44)
[2017-08-26] MEDS: TERAZOSIN 5 MG CAP PO (09:58)
[2017-08-26] MEDS: amLODIPine 5 MG TAB PO ×2 (09:59→20:44)
[2017-08-27] MEDS: CIPROFLOXACIN 0.3% OPHTH SOLN 2.5ML OU ×4 (00:32→17:20)
[2017-08-27] MEDS: LEVOTHYROXINE 25MCG TABLET (0.025MG) PO (05:43)
[2017-08-27] MEDS: SENOKOT S TAB PO ×2 (11:43→20:57)
[2017-08-27] MEDS: ASPIRIN 81 MG ENTERIC TAB PO (11:43)
[2017-08-27] MEDS: QUEtiapine FUMARATE 25 MG TAB PO ×2 (11:43→20:57)
[2017-08-27] MEDS: TERAZOSIN 5 MG CAP PO (11:43)
[2017-08-27] MEDS: amLODIPine 5 MG TAB PO ×2 (11:44→20:57)
[2017-08-28] MEDS: CIPROFLOXACIN 0.3% OPHTH SOLN 2.5ML OU ×5 (00:34→23:38)
[2017-08-28] MEDS: LEVOTHYROXINE 25MCG TABLET (0.025MG) PO (05:44)
[2017-08-28] MEDS: amLODIPine 5 MG TAB PO ×2 (11:47→20:30)
[2017-08-28] MEDS: TERAZOSIN 5 MG CAP PO (11:47)
[2017-08-28] MEDS: SENOKOT S TAB PO ×2 (11:48→20:25)
[2017-08-28] MEDS: ASPIRIN 81 MG ENTERIC TAB PO (11:48)
[2017-08-28] MEDS: QUEtiapine FUMARATE 25 MG TAB PO ×2 (11:48→20:25)
[2017-08-28] MEDS: TOBRAMYCIN 0.3% OPHTH SOLN 5 ML OU ×2 (17:00→20:25)
[2017-08-29] MEDS: TOBRAMYCIN 0.3% OPHTH SOLN 5 ML OU ×6 (04:07→21:00)
[2017-08-29] MEDS: LEVOTHYROXINE 25MCG TABLET (0.025MG) PO (05:59)
[2017-08-29] MEDS: CIPROFLOXACIN 0.3% OPHTH SOLN 2.5ML OU ×3 (05:59→17:15)
[2017-08-29] MEDS: ASPIRIN 81 MG ENTERIC TAB PO (12:50)
[2017-08-29] MEDS: QUEtiapine FUMARATE 25 MG TAB PO ×2 (12:50→21:21)
[2017-08-29] MEDS: TERAZOSIN 5 MG CAP PO (12:50)
[2017-08-29] MEDS: SENOKOT S TAB PO ×2 (12:50→21:21)
[2017-08-29] MEDS: amLODIPine 5 MG TAB PO ×2 (12:50→21:21)
[2017-08-30] MEDS: TOBRAMYCIN 0.3% OPHTH SOLN 5 ML OU ×6 (00:27→20:51)
[2017-08-30] MEDS: CIPROFLOXACIN 0.3% OPHTH SOLN 2.5ML OU ×2 (05:56)
[2017-08-30] MEDS: LEVOTHYROXINE 25MCG TABLET (0.025MG) PO (05:57)
[2017-08-30] MEDS: ASPIRIN 81 MG ENTERIC TAB PO (10:17)
[2017-08-30] MEDS: TERAZOSIN 5 MG CAP PO (10:18)
[2017-08-30] MEDS: QUEtiapine FUMARATE 25 MG TAB PO ×2 (10:18→20:50)
[2017-08-30] MEDS: amLODIPine 5 MG TAB PO ×2 (10:18→20:51)
[2017-08-30] MEDS: SENOKOT S TAB PO ×2 (10:18→20:51)
[2017-08-31] MEDS: TOBRAMYCIN 0.3% OPHTH SOLN 5 ML OU ×6 (01:14→21:19)
[2017-08-31] MEDS: LEVOTHYROXINE 25MCG TABLET (0.025MG) PO (05:35)
[2017-08-31] MEDS: ASPIRIN 81 MG ENTERIC TAB PO (09:51)
[2017-08-31] MEDS: QUEtiapine FUMARATE 25 MG TAB PO ×2 (09:51→21:17)
[2017-08-31] MEDS: SENOKOT S TAB PO ×2 (09:52→21:17)
[2017-08-31] MEDS: amLODIPine 5 MG TAB PO ×2 (09:52→21:19)
[2017-08-31] MEDS: TERAZOSIN 5 MG CAP PO (09:52)
[2017-09-01] MEDS: TOBRAMYCIN 0.3% OPHTH SOLN 5 ML OU ×6 (01:07→21:27)
[2017-09-01] MEDS: LEVOTHYROXINE 25MCG TABLET (0.025MG) PO (05:58)
[2017-09-01] MEDS: amLODIPine 5 MG TAB PO ×2 (10:13→21:28)
[2017-09-01] MEDS: ASPIRIN 81 MG ENTERIC TAB PO (10:13)
[2017-09-01] MEDS: QUEtiapine FUMARATE 25 MG TAB PO ×2 (10:13→21:28)
[2017-09-01] MEDS: TERAZOSIN 5 MG CAP PO (10:13)
[2017-09-01] MEDS: SENOKOT S TAB PO ×2 (10:13→21:28)
[2017-09-02] MEDS: TOBRAMYCIN 0.3% OPHTH SOLN 5 ML OU ×6 (01:33→20:20)
[2017-09-02] MEDS: LEVOTHYROXINE 25MCG TABLET (0.025MG) PO (05:48)
[2017-09-02] MEDS: ASPIRIN 81 MG ENTERIC TAB PO (08:10)
[2017-09-02] MEDS: SENOKOT S TAB PO ×2 (08:10→20:18)
[2017-09-02] MEDS: amLODIPine 5 MG TAB PO ×2 (08:10→20:19)
[2017-09-02] MEDS: QUEtiapine FUMARATE 25 MG TAB PO ×2 (08:10→20:19)
[2017-09-02] MEDS: TERAZOSIN 5 MG CAP PO (08:11)
[2017-09-03] MEDS: TOBRAMYCIN 0.3% OPHTH SOLN 5 ML OU ×6 (00:09→20:01)
[2017-09-03] MEDS: LEVOTHYROXINE 25MCG TABLET (0.025MG) PO (05:42)
[2017-09-03] MEDS: QUEtiapine FUMARATE 25 MG TAB PO ×2 (07:42→20:01)
[2017-09-03] MEDS: ASPIRIN 81 MG ENTERIC TAB PO (07:42)
[2017-09-03] MEDS: SENOKOT S TAB PO ×2 (07:43→20:01)
[2017-09-03] MEDS: amLODIPine 5 MG TAB PO ×2 (07:43→20:01)
[2017-09-03] MEDS: TERAZOSIN 5 MG CAP PO (07:43)
[2017-09-04] MEDS: TOBRAMYCIN 0.3% OPHTH SOLN 5 ML OU ×3 (01:00→11:01)
[2017-09-04] MEDS: LEVOTHYROXINE 25MCG TABLET (0.025MG) PO (06:00)
[2017-09-04] MEDS: TERAZOSIN 5 MG CAP PO (11:00)
[2017-09-04] MEDS: amLODIPine 5 MG TAB PO (11:00)
[2017-09-04] MEDS: QUEtiapine FUMARATE 25 MG TAB PO (11:01)
[2017-09-04] MEDS: SENOKOT S TAB PO (11:01)
[2017-09-04] MEDS: ASPIRIN 81 MG ENTERIC TAB PO (11:01)
== END 2017-09-04 11:47 | disposition hospice, home (50) | DRG 683 ==
LOC: M MSPAV 07-21 13:20 → M ED 09:15 → M ED INP 12:20 → M MSPAV 15:20
DX: N17.9 Acute kidney failure, unspecified (principal); F02.81 Dementia in other diseases classified elsewhere, unspecified severity, with behavioral disturbance; Z51.5 Encounter for palliative care; Z66 Do not resuscitate; E87.6 Hypokalemia; G30.9 Alzheimer's disease, unspecified; I10 Essential (primary) hypertension; E78.5 Hyperlipidemia, unspecified; E03.9 Hypothyroidism, unspecified; Z98.49 Cataract extraction status, unspecified eye; Z79.82 Long term (current) use of aspirin; Z79.899 Other long term (current) drug therapy